=== PATIENT | female | born 1980 | race Asian ===

== ENCOUNTER 2017-07-28 13:38 | Outpatient (CLI) | payer OTHER ==
--- NOTE | 2017-07-28 19:09 | MRI Report ---
EXAM: LEFT ANKLE/HINDFOOT MRI WITHOUT CONTRAST EXAM DATE: 07/28/2017 02:49 PM. CLINICAL HISTORY: Pain in left ankle and joints of left foot. COMPARISON: 11/28/2015 MRI, radiograph 10/12/2015. TECHNIQUE: Multiplanar, multisequence T1-weighted and fluid-sensitive sequences of the ankle/hindfoot without contrast. Other: None. FINDINGS: Bones: Mild tibiotalar joint osteophyte formation persists. The marrow edema previously seen within t he talus has resolved. Articular Cartilage: Unremarkable. Ligaments: The anterior and posterior tibiofibular and anterior posterior talofibular ligaments are i ntact. There is heterotopic ossification in the region of the proximal calcaneofibular ligament with thinning of the distal portion and adjacent cyst formation. Findings suggest remote prior injury. An ossific density within the deltoid ligament anteriorly is unchanged and indicates prior injury of lul t structure. Anterior Tendons: The tibialis anterior, extensor hallucis longus, and extensor digitorum longus tend ons are unremarkable. Medial Tendons: Small amount of fluid in the tibialis posterior tendon sheath could indicate mild ten osynovitis. The flexor digitorum longus and posterior hallucis longus tendons are unremarkable. Lateral Tendons: Fluid in the distal peroneal tendon sheath may indicate tenosynovitis. Achilles Tendon: The Achilles tendon is unremarkable. Musculature: No edema or fatty atrophy. Other: No effusions. The contents of the sinus tarsi and tarsal tunnel are unremarkable. No plantar f asciitis. The subcutaneous tissues are unremarkable. IMPRESSION: 1. Mild osteoarthritis. 2. Evidence of remote prior injury to the deltoid ligament and the calcaneofibular ligament. 3. Possible mild tenosynovitis of the tibialis posterior and peroneal tendon sheaths. [facility] MUSCULOSKELETAL RADIOLOGY SECTION Referring Provider Line: [phone] SITE ID: [id number]
== END 2017-07-28 13:39 | disposition home or self-care (01) ==
LOC: DI 13:38
PROVIDERS: ATTEND Orthopaedic Surgery
DX: M19.072 Primary osteoarthritis, left ankle and foot (principal)